=== PATIENT | female | born 1965 | race Caucasian/White ===

== ENCOUNTER → 2017-06-03 | Day surgery (SDC) | payer MEDICARE, MEDICAID ==
[~2017-06-03] VITALS: Ht 170.2 cm; Wt 63.3 kg
[~2017-06-03] MED LIST: ASCO500S2 PO; Bupivacaine-MPF 0.5% 30 mL Inj INFILTRATE ONE; Dexamethasone 4 mg/mL Inj IVPUSH PRN; Dexamethasone 4 mg/mL Inj ONE; EPHEDrine Sulfate 50 mg/mL Inj IVPUSH PRN; EPHEDrine/NS 5 mg/mL 5 mL Syringe ONE; GLUC-123 PO; Glycopyrrolate 0.2 MG/ML 1mL Inj ONE; HYDROcodone-APAP 5-325 mg Tablet PO PRN; HYDROmorphone 1 mg/mL Inj IVPUSH PRN; KRIL1CAP PO; LACT1CAP65 PO; Lactated Ringer's 1,000 ML IV ONE; Lactated Ringer's 1,000 ML IV SCH; Lactated Ringer's 500 ML IV PRN; MetoCLOpramide 5 mg/mL 2 mL Inj IVPUSH PRN; MetoCLOpramide 5 mg/mL 2 mL Inj ONE; Neostigmine 1 mg/mL 10 mL Inj ONE; Ondansetron 2 mg/mL 2 mL Inj IVPUSH PRN; Ondansetron 2 mg/mL 2 mL Inj ONE; Phenylephrine 10,000 mCg/mL Inj IVPUSH PRN; Phenylephrine 10,000 mCg/mL Inj ONE; Propofol 10 mg/mL 20 mL Inj ONE; Rocuronium 10 mg/mL 5 mL Inj ONE; [UNRECOGNIZED DRUG - CODE] MC; [UNRECOGNIZED DRUG - OTHER] PO; fentaNYL-PF 50 mCg/mL 2 mL Inj IVPUSH PRN; fentaNYL-PF 50 mCg/mL 2 mL Inj ONE
[2017-06-03 08:48] VITALS: BP 99/70; PULSE 85; RESP 18; O2SAT 99
--- NOTE | 2017-06-03 10:06 | PCM.HPANE ---
Patient Data Surgeon Admitting Provider: Attending Provider:Juan Carlos Gamboa MD Primary Care Physician:Foster Murcia DO Other Provider:Abran Partida Anesthesia Reason for Visit Hyperparathyroidism Ht/WT & BMI Height (Feet): 5 Height (Inches): 7 Weight (Kilograms): 65.7 Body Mass Index 22.00 Allergies Coded Allergies: No Known Allergies (Verified Allergy, Unknown, 05/30/17) Past Anesthesia History Anesthesia History: Positive for:: Anesthesia Reactions (Has awakened during operative procedure in past), Denies:: Abnormal Airway, Difficult Intubation, Fam Anesthesia Reaction, Fam Malignant Hypertherm, Malignant Hyperthermia Diabetes History Hx Diabetes?: No MRSA MRSA: Yes (Possibly with last admission) Medications Reported Medications Ascorbic Acid (Vitamin C)500 Mg/5 Ml [id number] Mg PO #2 TABLET 05/30/17 Krill/Om3/Dha/Epa/Om6/Lip/Astx (Krill Oil 1,000 mg Softgel)1 Each Capsule1 Each PO DAILY 05/30/17 Lactobacillus Acidophilus (Probiotic)1 Each Capsule1 Each PO 05/30/17 Gluc/Mayco-MSM#2/C/D3/Alex/Born (Wabcelyufq-Hbyoxvcccgy-YCD Tab)1 Each Tablet1 Each PO 05/30/17 Activated Charcoal (Charcoal, Activated)1 Gm Powder1 Gm MC 05/30/17 [Ashwaganha root] No Conflict Check Po Daily 05/30/17 Discontinued Reported Medications Ascorbic Acid (Shanell-C)120 Gm [id number] Gm PO 05/30/17 [None] No Conflict Check 05/19/13 History History of ENT Problems?: No HEENT History: Denies:: Abnormal Airway Cataracts Difficult Intubation Dysphagia Glaucoma Hearing Problem Sinus Problem TMJ Denture Type: None Teeth Condition: Within Normal Limits Missing Teeth Hx of Heart Problems?: No Cardiovascular History: Positive for:: Heart Murmur Denies:: AICD Abdominal Aortic Aneurism Atrial Fibrillation Cardiac Surgery Chest Pain Congestive Heart Failure Coronary Artery Disease Edema Hypertension Irregular Heartbeat Pacemaker Peripheral Vascular Rheumatic Fever Thrombophlebitis Valvular Heart Disease Hx of Respiratory Problem?: No Respiratory History: Denies:: Asthma COPD Chest Surgery Cough Dyspnea Emphysema Hemoptysis Oxygen Administration Pneumonia Pulmonary Embolism Tuberculosis Use of C-PAP Machine Use of Inhalers / NEBS Hx Neurologic Problems?: No Neurological History: Denies:: CVA Seizures Hx of GI Problems?: No Hx of Problems?: No Genitourinary History: Denies:: HX of Hemodialysis Kidney Stones Urinary Tract Infection HX of Peritoneal Dialysis: No Female Hx: Denies:: Currently Hx Musculoskeletal Problems?: Yes Musculoskeletal History: Positive for:: Back Injury (Disc repair neck area) Fibromyalgia Musculoskeletal Trauma (Fractured ribs December 2016 no residual) Myasthenia Gravis Denies:: Degenerative Joint Joint Replacement Osteoarthritis Rheumatoid Arthritis Psycho Social History: Positive for:: Hx Depression Hx Surgeries?: Yes (CERVICAL DISC FUSION, L SHOULDER) Hx Any Other Health Problems?: No Other History: Positive for:: Thyroid Disease (Reason for admit) Denies:: Cancer History Blood Transfusions: Positive for:: Accept Blood Products? Denies:: Blood Transfusions Hx Diabetes: No Hx Alcohol Use: NoHx Substance Use: NoHave You Smoked inLast 12 mo: No Stop/Bang S-Snoring: Do You Snore Loudly: No T-Tired: feel tired, fatigued: No O-Obsered: Observed not breath: No P-Blood Pressure: treated: No B- Body Mass Index > 35 kg/m2: No A- Age over 50: Yes N- Neck Large Circumference: No G- Gender Male: No KORY Total Score: 1 Risk Assessment Category Category 1A: Patient has history of documented sleep apnea, and HAS NOT received any narcotic, sedative or anesthesia administration during this stay. Category 1B: Patient has history of documented sleep apnea, and HAS received any narcotic , sedative or anesthesia administration during this stay Category 2: Patient has SUSPECTED Obstructive Sleep Apnea, and HAS received any narcotic , sedative or anesthesia administration during this stay. Category 3: Patient has SUSPECTED Obstructive Sleep Apnea and HAS NOT received narcotic, sedative or anesthesia administration during this stay. Category 4: Outpatient in Procedural Areas with known sleep apnea or who screen positive for High Risk via the STOP/BANG questionnaire. Exam Exam General Appearance: Alert, Oriented X3, Cooperative, No Acute Distress HEENT/AIRWAY: MP 2, Neck Movement (good rom), Mouth Opening (large) Lungs: Clear to Auscultation Heart: Exam Unremarkable Plan Impression Patient chart reviewed, patient interviewed and anesthestic plan with risks, benefits, and alternatives discussed, and informed consent obtained. ASA Physical Status: ASA2 Mod Systemic Disease Anesthetic Plan: GA Bene/Risks/Altern/Consents: Yes HP Complete Prior to Induction: Yes Alberto Moore MD Jun 03, 2017 08:04
--- NOTE | 2017-06-03 11:32 | PCM.DISURG ---
Surgical Discharge Instruction Date of Service Jun 03, 2017 Dates of Hospitalization Date of Hospital Admission Providers Admitting Physician: Primary Care Physician: Foster Murcia DO Attending Physician: Juan Carlos Gamboa MD Discharge Diagnosis Discharge Diagnosis Hyperparathyroidism Diet Discharge Diet: No restrictions Activity Discharge Activity-General: No restrictions, Activity as pain allows Dressing and Incisional Care Dressing Instructions: Dermabond will peel off gradually Hygiene: May shower Follow Up Plan Follow Up Plan in the [facility] postop clinic in 2-3 weeks Call your provider for: Fever (over 101.5F), Discharge @ incision, pus discharge Juan Carlos Gamboa MD Jun 03, 2017 11:32
[2017-06-03 11:48] VITALS: BP 115/69; PULSE 49; RESP 16; O2SAT 99
--- NOTE | 2017-06-03 11:52 | PCM.SURGOP ---
Surgical Operative Report Date of Service: Jun 03, 2017 Pre Operative Diagnosis Hyperparathyroidism Post Operative Diagnosis Same Procedure: Parathyroid exploration Surgeon and Computer Systems Information Director: Surgeon: Juan Carlos aGmboa MD Assistants: Hector Saunders MD; Massimo Zelaya PA-C Indication for Procedure 51-year-old woman who has a personal history of prior anterior neck fusion, who was diagnosed with primary hyperparathyroidism. Her preoperative PTH was 83, with a calcium of 10.5. She had osteopenia. Her main complaint was fatigue as well as bilateral foot pain. Her imaging studies were not completely conclusive , but were suggestive of a right-sided parathyroid adenoma. After discussion of risks and benefits, she agreed to proceed with parathyroid exploration. Findings: 2 abnormal parathyroid glands were identified. The right inferior gland measured 0.7 x 0.7 x 0.5 cm. The initial PTH prior to excision was 59, and after excision of the right inferior parathyroid gland, PTH was 29, consistent with biochemical cure. The right superior parathyroid gland was also excised, which measured 1.0 x 0.5 x 0.3 cm, which included a small amount of fat around the parathyroid tissue. The third PTH was 22. Procedure Details After smooth induction of general endotracheal anesthesia, she was placed in the modified beachchair position with the neck extended, and was prepped and draped in wide sterile fashion. A procedural pause was performed according to the SCOAP checklist, and all were found to be in agreement. A transverse collar incision was made, utilizing part of her prior transverse incision on the right side for neck fusion. Dissection was carried through the subcutaneous tissue until the platysma muscle was divided. Subplatysmal skin flaps were raised superiorly and inferiorly. The median raphae was incised, and the right sternohyoid and sternothyroid muscles were elevated off the right thyroid lobe. There were some adhesions from her prior neck fusion. The right middle thyroid vein was isolated, and divided with the LigaSure device. There were some inferior attachments from the right thyroid lobe to her strap muscles , again postsurgical in nature, which were divided with the LigaSure device. A PTH sample was drawn from the right internal jugular vein, which came back at 59. The right inferior thyroid artery was identified. Just inferior to it, there was a parathyroid gland which was visualized. This was somewhat bilobed in nature, mildly enlarged. It was meticulously dissected off its blood supply using the LigaSure device. Ex vivo, it measured 0.7 x 0.7 x 0.5 cm. It was sent for permanent pathology, labeled as right inferior parathyroid gland. After 15 minutes, a second PTH sample was drawn from the right internal jugular vein, which came back at 29, consistent with biochemical cure. In the meantime while waiting for them blood sample, additional dissection was performed. Posterior to the right inferior thyroid artery, a likely second parathyroid gland was identified which had somewhat of a fatty capsule. It was dissected free from the surrounding tissues without leaving any of it in place. Ex vivo, it measured 1.0 x 0.5 x 0.3 cm. It was sent for permanent pathology, labeled as right superior parathyroid gland. PTH sample was drawn from the right internal jugular vein, which ultimately came back at 22. Hemostasis was adequate. The strap muscles were reapproximated with interrupted 3-0 Vicryl suture. The platysma muscle was reapproximated with interrupted 3-0 Vicryl suture. The skin incision was closed with a running 4-0 Monocryl subcuticular stitch. Dermabond was applied to the skin as a dressing. At the end of the case all needle and sponge counts were correct 2. The patient was awakened from anesthesia without difficulty, and taken to the recovery room in satisfactory condition, having tolerated the procedure well. Assistance from a second surgeon was necessary because of the difficulty of the operation from prior neck fusion. Complications There were no periprocedural complications identified. Surgical Specimen Removed: Yes Specimen sent to Pathology: Yes Surgical Specimen description: Right inferior parathyroid gland. Right superior parathyroid gland. Anesthetic Plan: GA Grafts, Implants: None Output, Estimated Blood Loss: 10 Blood Administration during feldman: No Drains: None Catheters: None copies to: Cl Monroe DO Hawkins, Joshua D MD Jun 03, 2017 11:52
--- NOTE | 2017-06-03 11:53 | PCM.ANEP1 ---
Post Anesthesia PACU Phase 1 Assessment Vital Signs Vital Signs Date Time Temp Pulse Resp B/P Pulse Ox O2 Delivery O2 Flow Rate FiO2 06/03/17 08:48 36.3 85 18 99/70 99 Room Air Anesthetic Administered: GA Level of Alertness: Sleepy, easy to arouse DIANE's with Equal Strength: Yes Pain: No Nausea or Vomiting: No CV Function & Hydration Stable: Yes Airway Device: Oxygen Delivery: Room Air Lungs: Clear to Auscultation Dermatome Level: Full Sensation PACU Phase 2 Assessment Complications: No Patient Instructions Provided: N/A Alberto Moore MD Jun 03, 2017 11:53
[2017-06-03 12:00] VITALS: BP 110/11; PULSE 52; RESP 14; O2SAT 98
[2017-06-03 12:07] VITALS: BP 96/56; PULSE 48; RESP 16; O2SAT 98
[2017-06-03 12:12] VITALS: BP 105/63; PULSE 47; RESP 16; O2SAT 100
[2017-06-03 12:30] VITALS: BP 98/66; PULSE 49; RESP 16; O2SAT 99
--- NOTE | 2017-06-06 09:47 | PATH ---
SURGICAL PATHOLOGY Attending Physician:Anamaria Gr CASE STATUS: Signed Out PATIENT NAME: NICHOLAS SAUL PID: [id number] : 1965 DATE COLLECTED:06/03/2017 19:59 SPECIMEN: 1: Parathyroid Gland 2: Parathyroid Gland CLINICAL HISTORY: HYPERPARATHYROIDISM 1). RIGHT INFERIOR PARATHYROID GLAND 0.7 X 0.2 X 0.5 2). RIGHT SUPERIOR PARATHYROID GLAND FINAL DIAGNOSIS: 1. Right Inferior Parathyroid Glands, Parathyroidectomy: Parathyroid adenoma. 2. Right Superior Parathyroid Glands, Parathyroidectomy: Hypercellular parathyroid tissue. ICD10: D35.1 GROSS DESCRIPTION: The specimen is received in two formalin filled containers labeled with the patient's name. 1). The specimen is labeled "right inferior parathyroid gland" and consists of a 0.6 x 0.5 x 0.4 CM portion of ledbetter-brown rough tissue which is entirely submitted in cassette 1A. 2). The specimen is labeled "right superior parathyroid gland" and consists of a joseph-ledbetter mottled portion of tissue which measures 0.8 x 0.5 x 0.3 CM. The specimen is entirely submitted in cassette 2A. 06/03/2017DC ICD-9 CODES: CPT CODES: 1: 91081 2: 40478 Electronically Signed Out Rosibel Martin MD [facility] Pathology [facility] [address], [place] [address] Technical component performed at [facility], [address] [place] [address] [address], [place], [address]
== END | disposition home or self-care (01) ==
LOC: SAS 08:16
PROVIDERS: ATTEND Student in an Organized Health Care Education/Training Program
DX: D35.1 Benign neoplasm of parathyroid gland (principal); E21.3 Hyperparathyroidism, unspecified; F32.9 Major depressive disorder, single episode, unspecified; M79.7 Fibromyalgia; K21.9 Gastro-esophageal reflux disease without esophagitis; F25.9 Schizoaffective disorder, unspecified; Z87.891 Personal history of nicotine dependence
CPT/HCPCS: 36415; 60500; 83970; 88305; J1100; J2250; J2370; J2405; J2704; J2710; J2765; J3010; J7120